=== PATIENT | female | born 1990 | race Two or more races ===

== ENCOUNTER 2024-02-12 11:39 | Emergency (ER) | payer OTHER ==
[~2024-02-12] VITALS: Ht 154.9 cm; Wt 50.8 kg
[2024-02-12] MEDS ORDERED: ACETAMINOPHEN 325 MG TABLET PO ONE (13:15)
[2024-02-12 13:52] LABS: HEMATOCRIT 43.6 % (36.0-45.00); HEMOGLOBIN 14.8 g/dL (12.0-15.00); MEAN CELL VOLUME 93.8 fL (80.00-100.00); MEAN CORPUSCULAR HEMOGLOBIN 31.9 pg (27.00-32.0); RED BLOOD COUNT 4.65 M/uL (4.00-6.00); RED CELL DISTRIBUTION WIDTH 12.3 % (11.5-14.5)
[2024-02-12 13:55] LABS: PLATELET COUNT 119 K/uL (150-450)
== END 2024-02-12 15:16 | disposition home or self-care (01) ==
LOC: ER 11:40
PROVIDERS: General Practice
DX: A90 Dengue fever [classical dengue] (principal)